=== PATIENT | male | born 1960 | race African-American/Black ===

== ENCOUNTER 2018-05-13 10:16 | Emergency (ER) | payer BC, OTHER ==
[2018-05-13 10:34] VITALS: BP 150/91; PULSE 61; TEMP 97.5; BMI 27.0
--- NOTE | 2018-05-13 10:57 | PDOC ---
History of Present Illness - General Chief Complaint: Nausea/Vomiting Stated Complaint: LIGHTHEADED History Source: Patient Exam Limitations: No Limitations - History of Present Illness Initial Comments: 05/13/18 11:35 58 yo M with a hx of HTN, HLD, and DM presents to the emergency department with N/V with associative lightheadedness and abdominal pain that began today at 5am. Per the patient, he was well yesterday and woke up this morning feeling nauseous and lightheaded when walking to the bathroom. He had 4x NBNB emesis events back to back at approximately 8am with epigastric pain that is 8/10 cramp sensation, non radiating, constant, and was initially 10/10. Per the patient, he denies SOB and chest pain. No recent stress test. Denies the following: fever, chills, visual changes, ears/nose/throat pain, dysuria, hematuria, back pain, melena, hematochezia, diarrhea, and leg pain/swelling. No recent travels. Shx: Left rotator cuff repair Meds: metformin, lisinopril, atorvastatin Allergies: NKDA Social: Denies tobacco, alcohol, and substance abuse. Past History - Past Medical History Allergies/Adverse Reactions: Allergies Allergy/AdvReac Type Severity Reaction Status Date / Time No Known Allergies Allergy Verified 05/13/18 10:30 Home Medications: Ambulatory Orders Atorvastatin Ca [Lipitor] 20 mg PO HS 05/13/18 Lisinopril [Prinivil] 10 mg PO DAILY 05/13/18 Ondansetron [Zofran -] 4 mg PO TID PRN #8 tablet 05/13/18 metFORMIN HCL [Metformin HCl] 500 mg PO DAILY 05/13/18 COPD: No Diabetes: Yes (NIDDM) HTN: Yes Hypercholesterolemia: Yes - Surgical History Orthopedic Surgery: Yes (remote left shoulder) - Suicide/Smoking/Psychosocial Hx Smoking Status: No Smoking History: Never smoked Number of Cigarettes Smoked Daily: 0 Hx Alcohol Use: No Drug/Substance Use Hx: No Substance Use Type: None Review of Systems - Review of Systems Able to Perform ROS?: Yes Is the patient limited Telugu proficient: No Constitutional: No: Chills, Diaphoresis, Fever, Weakness HEENTM: No: Recent change in vision, Ear Pain, Nose Pain, Throat Pain, Mouth Pain Respiratory: No: Cough, Shortness of Breath, SOB with Exertion, Hemoptysis Cardiac (ROS): Yes: Lightheadedness. No: Chest Pain, Palpitations, Syncope, Chest Tightness ABD/GI: Yes: Nausea, Vomiting. No: Constipated, Diarrhea, Rectal Bleeding, Tarry Stools : No: Burning, Dysuria, Hematuria, Urgency Musculoskeletal: No: Back Pain, Joint Pain, Neck Pain Integumentary: No: Bruising, Erythema, Flushing, Lesions, Lumps, Rash Neurological: No: Headache, Numbness, Tingling, Tremors, Ataxia, Dizziness Psychiatric: No: Change in Appetite Endocrine: No: Unexplained Weight Gain Hematologic/Lymphatic: No: Anemia *Physical Exam - Vital Signs Last Vital Signs Temp Pulse Resp BP Pulse Ox 97.5 F L 61 20 150/91 99 05/13/18 10:30 05/13/18 10:30 05/13/18 10:30 05/13/18 10:30 05/13/18 10:30 - Physical Exam General Appearance: Yes: Nourished, Appropriately Dressed. No: Apparent Distress, Intoxicated HEENT: positive: EOMI, KASHMIR, Normal Voice, Pharynx Normal, Hearing Grossly Normal. negative: Pale Conjunctivae, Scleral Icterus (R), Scleral Icterus (L), Muffled/Hoarse voice, Pharyngeal Erythema, Tonsillar Exudate, Tonsillar Erythema , Nasal Congestion, Excessive drooling Neck: positive: Trachea midline. negative: Tender, Lymphadenopathy (R), Lymphadenopathy (L), Tender lateral, Tender midline Respiratory/Chest: positive: Lungs Clear, Normal Breath Sounds. negative: Chest Tender, Respiratory Distress, Accessory Muscle Use, Crackles, Rales, Rhonchi, Stridor, Wheezing Cardiovascular: positive: Regular Rhythm, Regular Rate, S1, S2. negative: Systolic Murmur Gastrointestinal/Abdominal: positive: Normal Bowel Sounds, Flat, Soft. negative : Tender, Distended, Tenderness, Hernia Lymphatic: negative: Adenopathy Musculoskeletal: positive: Normal Inspection. negative: CVA Tenderness, Vertebral Tenderness Extremity: positive: Normal Capillary Refill, Normal Inspection, Normal Range of Motion. negative: Tender, Swelling, Calf Tenderness Integumentary: positive: Normal Color, Dry, Warm. 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 negative: Facial Droop, Sensory Deficit Moderate Sedation - Procedure Monitoring Vital Signs: Procedure Monitoring Vital Signs Temperature 97.5 F L 05/13/18 10:30 Pulse Rate 61 05/13/18 10:30 Respiratory Rate 20 05/13/18 10:30 Blood Pressure 150/91 05/13/18 10:30 O2 Sat by Pulse Oximetry (%) 99 05/13/18 10:30 Heart Score/ECG Review - History History: Slightly suspicious - Electrocardiogram EKG: Normal - Age Age: 45-65 - Risk Factors Risk Factors Heart Score: Yes Hx Hypercholesterolemia, Yes Hx Hypertension, Yes Hx Diabetes Based on the list above the patient has:: >/=3 risk factors or Hx atherosclerotic disease - Troponin Troponin: </= normal limit - Score Heart Score - Total: 3 - ECG Intrepretation Comment:: ventricular rate is 52 bpm, MT 186 ms, QRS 86 ms, QTc is 390 ms. Sinus bradycardia without ST elevations or depressions. ED Treatment Course - LABORATORY CBC & Chemistry Diagram: 05/13/18 12:42 05/13/18 12:42 Medical Decision Making - Medical Decision Making 58 yo M with a hx of HTN, HLD, and DM presents to the emergency department with N/V with associative lightheadedness and abdominal pain that began today at 5am. Initial vitals: Initial Vital Signs Temp Pulse Resp BP Pulse Ox 97.5 F L 61 20 150/91 99 05/13/18 10:30 05/13/18 10:30 05/13/18 10:30 05/13/18 10:30 05/13/18 10:30 Work up: ddx: viral gastroenteritis vs acs vs PNA vs pancreatitis vs gastritis vs GERD Laboratory Tests 05/13/18 05/13/18 12:42 12:42 WBC 4.5 RBC 4.47 Hgb 14.0 Hct 41.2 MCV 92.3 MCH 31.3 MCHC 34.0 RDW 13.3 Plt Count 191 MPV 8.9 Absolute Neuts (auto) 2.8 Neutrophils % 61.2 D Lymphocytes % 30.7 D Monocytes % 6.7 Eosinophils % 0.9 Basophils % 0.5 Nucleated RBC % 0 Sodium 141 Potassium 4.1 Chloride 107 Carbon Dioxide 28 Anion Gap 6 L BUN 15 Creatinine 1.0 Creat Clearance w eGFR > 60 Random Glucose 125 H Calcium 8.5 Total Bilirubin 0.5 AST 15 ALT 31 Alkaline Phosphatase 71 Creatine Kinase 235 Creatine Kinase Index 1.1 CK-MB (CK-2) 2.7 Troponin I < 0.02 Total Protein 6.7 Albumin 3.6 Lipase 277 labs wnl. CXR was negative for acute pathologies. patient was given pepcid, tylenol, IVF, and zofran. had significant relief in symptoms. wishes to be discharged. a bedside POCUS was done for gallbladder and aorta assessment. gallbladder was was not thickened, no presence of percholecystic fluid, no dilation of CBD, and no signs of gallstones or sludge. Aorta did not have dilation and was within normal limits. gave patient strict return precautions and advised him to follow up with his PMD within 1 week after discharge. given outpatient zofran. Dispo: Discharge *DC/Admit/Observation/Transfer Diagnosis at time of Disposition: Nausea and vomiting Qualifiers: Vomiting type: unspecified Vomiting Intractability: unspecified Qualified Code( s): R11.2 - Nausea with vomiting, unspecified - Discharge Dispostion Disposition: HOME Decision to Admit order: No - Prescriptions Prescriptions: Ondansetron [Zofran -] 4 mg PO TID PRN #8 tablet PRN Reason: Nausea And/Or Vomiting - Referrals Referrals: Noble Moss [Primary Care Provider] - - Patient Instructions Printed Discharge Instructions: DI for Vomiting -- Adult Additional Instructions: you were evaluated in the emergency department for your nausea, vomiting, lightheadedness, and abdominal pain. your labs were within normal limits and your ultrasound study was normal. you improved significantly with fluids and anti-nausea medication. please follow up with your primary medical doctor within 1 week after discharge for follow up care and management. please return to the emergency department if you have worsening symptoms or new concerning symptoms such as uncontrollable nausea, vomiting, and pain as well as fevers, chills, and blood in the diarrhea. thank you. - Post Discharge Activity Forms/Work/School Notes: Back to Work
[2018-05-13] MEDS ORDERED: ACETAMINOPHEN 1000 MG/100 ML VIAL (NON FORMULARY) IVPB ONE (11:45)
[2018-05-13] MEDS ORDERED: SODIUM CHLORIDE 1,000 ML IV STA (11:45)
[2018-05-13] MEDS ORDERED: ONDANSETRON 4 MG/2 ML VIAL IVPUSH ONE (11:45)
[2018-05-13] MEDS ORDERED: FAMOTIDINE 20 MG/50 ML IVPB 20 MG/50 ML MG IVPB ONE ×2 (11:45→12:35)
--- NOTE | 2018-05-13 12:01 | PDOC ---
Attending Attestation - Resident Resident Name: FlorenciaMohamud - ED Attending Attestation I have performed the following: I have examined & evaluated the patient, The case was reviewed & discussed with the resident, I agree w/resident's findings & plan - HPI HPI: 05/13/18 12:03 58-year-old male with hypertension and diabetes in usual state of good health until he awoke this morning with periumbilical/epigastric discomfort associated with nausea with about 4 episodes of nonbloody nonbilious emesis, normal nonbloody bowel movement at 9:30 AM, cold sweat this morning but no measured fevers. no recent travel/abx/diet change/sick contacts. normal c-scope in the past, never needed egd. - Physicial Exam PE: 05/13/18 12:07 afebrile, normal VS well appearing, nad, asx now no jaundice/pallor, mmm s1s2 rrr, ctab abd soft/nt/nd bs nl. no guarding/rebound. no cvat - Medical Decision Making 05/13/18 12:08 58-year-old male presents with nonbloody nonbilious nausea/vomiting this morning with epigastric discomfort, now resolved. Vital signs normal with benign abdominal exam and no evidence of peritonitis. Presentation seems most consistent with gastritis/dyspepsia, question viral etiology. Rule out early every or pancreatic etiology, low suspicion for ACS. Labs, EKG IV fluids, antiemetics, antacid Reassess 05/13/18 13:39 labs nl, no leukocytosis, normal LFT and lipase. bedside sono per resident note feels well, abd benign Heart Score/ECG Review #1 ECG reviewed & interpreted by me at: 11:18 General ECG Interpretation: Sinus Rhythm, Normal Rate (52), Normal Intervals ( qtc 390), No acute ischemic changes
[2018-05-13] MEDS ORDERED: ONDANSETRON 4 MG/2 ML VIAL ONE (12:34)
[2018-05-13] MEDS ORDERED: ACETAMINOPHEN INJECTION 100 ML IVPB ONE (12:34)
[2018-05-13 12:53] LABS: BASO % 0.5 % (0-2.0); EOS % 0.9 % (0-4.5); HEMATOCRIT 41.2 % (35.4-49); LYMPH % 30.7 % (8-40); MCH 31.3 pg (25.7-33.7); MEAN CELL VOLUME 92.3 fl (80-96); MEAN PLT VOLUME 8.9 fl (7.5-11.1); MONO % 6.7 % (3.8-10.2); NEUT % 61.2 % (42.8-82.8); PLATELET COUNT 191 K/MM3 (134-434); RBC 4.47 M/mm3 (4.00-5.60); RDW 13.3 % (11.9-15.9); WHITE BLOOD COUNT 4.5 K/mm3 (4.0-10.0)
[2018-05-13 13:29] LABS: ALBUMIN 3.6 g/dl (3.4-5.0); ALK PHOS 71 U/L (45-117); ANION GAP 6 MMOL/L (8-16); BILIRUBIN,TOTAL 0.5 mg/dL (0.2-1); BLOOD UREA NITROGEN 15 mg/dL (7-18); CALCIUM 8.5 mg/dL (8.5-10.1); CHLORIDE 107 mmol/L (98-107); CO2 28 mmol/L (21-32); GLUCOSE,RANDOM 125 mg/dL (74-106); LIPASE 277 U/L (73-393); POTASSIUM 4.1 mmol/L (3.5-5.1); SGOT/AST 15 U/L (15-37); SGPT/ALT 31 U/L (13-61); SODIUM 141 mmol/L (136-145); TOT PROT 6.7 g/dl (6.4-8.2)
--- NOTE | 2018-05-13 18:11 | EKG ---
Test Reason : Blood Pressure : / mmHG Vent. Rate : 052 BPM Atrial Rate : 052 BPM P-R Int : 186 ms QRS Dur : 086 ms QT Int : 420 ms P-R-T Axes : 046 -06 032 degrees QTc Int : 390 ms SINUS BRADYCARDIA OTHERWISE NORMAL ECG Confirmed by MD GEOVANI, PAULY ([id number]) on 05/13/2018 6:10:24 PM Referred By: Confirmed By:PAULY OLIVO MD
== END 2018-05-13 15:15 | disposition home or self-care (01) ==
LOC: JER 10:16
PROC: 3E033GC Introduction of Other Therapeutic Substance into Peripheral Vein, Percutaneous Approach (ICD-10-PCS; principal; 2018-05-13)
PROC: 3E033GC Introduction of Other Therapeutic Substance into Peripheral Vein, Percutaneous Approach (ICD-10-PCS; 2018-05-13)
PROC: 3E033NZ Introduction of Analgesics, Hypnotics, Sedatives into Peripheral Vein, Percutaneous Approach (ICD-10-PCS; 2018-05-13)
DX: R11.2 Nausea with vomiting, unspecified (principal); I10 Essential (primary) hypertension; E11.9 Type 2 diabetes mellitus without complications; Z79.84 Long term (current) use of oral hypoglycemic drugs; E78.00 Pure hypercholesterolemia, unspecified
CPT/HCPCS: 36415; 71045-TC-FY; 80053; 82550; 82553; 83690; 84484; 85025; 93005; 93010; 99283-25; J0131; J7030

== ENCOUNTER 2020-07-11 07:21 | Emergency (ER) | payer BC, OTHER ==
[2020-07-11] MEDS ORDERED: ACETAMINOPHEN 500 MG TABLET (FP) PO ONE (08:08)
[2020-07-11] MEDS ORDERED: ACETAMINOPHEN 325 MG TABLET (FP) ONE (08:54)
[2020-07-11 09:24] VITALS: BP 124/61; PULSE 100; TEMP 100.1; BMI 25.8
== END 2020-07-11 09:00 | disposition home or self-care (01) ==
LOC: JER 07:21
DX: J18.9 Pneumonia, unspecified organism (principal)
CPT/HCPCS: 71046-TC-FY; 99283-25